=== PATIENT | male | born 1950 | race Caucasian/White ===

== ENCOUNTER → 2019-08-03 | Outpatient (REF) | payer MEDICARE | LOC: M SMT 17:04 | PROVIDERS: ATTEND Nurse Practitioner Family | DX: R97.20 Elevated prostate specific antigen [PSA] (principal) | CPT/HCPCS: 87086; G0463 ==

== ENCOUNTER → 2020-02-01 | Outpatient (CLI) | payer MEDICARE | LOC: M SMT PRO 09:56 | PROVIDERS: ATTEND Urology | DX: R97.20 Elevated prostate specific antigen [PSA] (principal); Z53.9 Procedure and treatment not carried out, unspecified reason ==

== ENCOUNTER → 2020-02-15 | Outpatient (CLI) | payer MEDICARE ==
--- NOTE | 2020-02-15 13:12 | REPPI ---
Prostate sonography: History: Elevated PSA. Sonographic findings: Trans rectal prostate sonography demonstrates unremarkable seminal vesicles. Prostate gland is heterogeneously enlarged with calcifications and cystic changes noted. Glandular dimensions are measured at and 4.4 x 3.6 x 5.9 cm with a calculated glandular volume of 49.2 ml. Transrectal sonographic guidance is provided to Dr. Leslie who performed trans rectal ultrasound guided needle biopsy procedure . Electronically Signed by Nestor Reilly MD 02/15/2020 01:04 P
== END ==
LOC: M SMT PRO 10:33
PROVIDERS: ATTEND Urology
DX: R97.20 Elevated prostate specific antigen [PSA] (principal)
CPT/HCPCS: 55700; 76872; 76942; G0416